=== PATIENT | male | born 1955 | race Caucasian/White ===

== ENCOUNTER 2021-07-06 22:43 | Emergency (ER) | payer MEDICARE, OTHER ==
[~2021-07-06] VITALS: Ht 170.2 cm; Wt 106.1 kg
[2021-07-06] MEDS ORDERED: IV NS 0.9% 500 ML BAG IV ONE (23:30)
[2021-07-06 23:44] LABS: BASOPHILS # (AUTO) 0.1 K/uL (0.0-0.2); BASOPHILS % (AUTO) 0.7 % (0.0-2.0); EOSINOPHILS % (AUTO) 1.9 % (0.0-6.0); HEMATOCRIT 39 % (39-51); LYMPHOCYTES # (AUTO) 2.1 K/uL (0.8-4.8); LYMPHOCYTES % (AUTO) 16.9 % (20.0-44.0); MEAN CORPUSCULAR HGB CONC 31 g/dl (31.0-36.0); MEAN CORPUSCULAR VOLUME 77 fL (80-96); MONOCYTES # (AUTO) 1.2 K/uL (0.1-1.30); MONOCYTES % (AUTO) 9.7 % (2.0-12.0); NEUTROPHILS # (AUTO) 8.9 K/uL (1.8-8.9); NEUTROPHILS % (AUTO) 70.8 % (43.0-81.0); PLATELET COUNT (AUTO) 261 K/uL (150-450); RED BLOOD CELL COUNT(AUTO) 5.03 MIL/uL (4.5-6.0); WHITE BLOOD COUNT (AUTO) 12.6 K/uL (4.3-11.0)
--- NOTE | 2021-07-06 23:52 | NUR ---
Patient out to CT
[2021-07-06 23:59] LABS: CALCIUM, SERUM 8.3 mg/dL (8.5-10.1); CREATININE 1.4 mg/dL (0.6-1.3); POTASSIUM 4.4 mmol/L (3.5-5.1)
[2021-07-07 00:05] LABS: ALBUMIN 3.5 g/dL (3.4-5.0); BILIRUBIN,DIRECT 0.1 mg/dL (0.0-0.2); BILIRUBIN,TOTAL 0.2 mg/dL (0.2-1.0)
--- NOTE | 2021-07-07 00:37 | NUR ---
followed up with lab regarding lab result, spoke with Fawad
[2021-07-07 00:48] LABS: BILIRUBIN,URINE NEGATIVE (NEGATIVE); COLOR,URINE YELLOW (YELLOW); LEUKOCYTE ESTERASE ,URINE NEGATIVE (NEGATIVE); NITRITE, URINE NEGATIVE (NEGATIVE); PH,URINE 7.5 (5.0-8.0); PROTEIN,URINE TRACE mg/dl (NEGATIVE); UGLUCOSE NEGATIVE (NEGATIVE); UROBILINOGEN,URINE 0.2 EU/dL (0.2)
--- NOTE | 2021-07-07 01:25 | NUR ---
ATTEMPTED TO DISCHARGE PT TO [facility]. [facility] REFUSED TO ACCEPT PATIENT AND BECAME VERBALLY AGRESSIVE TOWARDS STAFF STATING PATIENT REQUIRED BEING ADMITTED TO HAVE MEDICATION DOSES ADJUSTED. ATTEMPTED EDUCATING [facility] MULTIPLE TIMES WITH CHARGE NURSE AND INFORMED THEM NO EMERGENCIES WERE PRESENT AND THAT THEY NEEDED TO FOLLOW UP WITH A PCP FOR MEDICATION ADJUSTMENTS, AND [facility] CONTINUED TO REFUSE. NOTIFIED.
--- NOTE | 2021-07-07 02:10 | NUR ---
RODOLFO KEBEDE TALKING TO DR. MONROE WHO IS THE PT'S PCP.
[2021-07-07 02:17] LABS: BACTERIA,URINE None seen /HPF (None Seen)
[2021-07-07 02:18] LABS: SQUAMOUS EPITHELIAL CELL,UR Few /HPF (None Seen); WBC,URINE 0-2 /HPF (0-3)
--- NOTE | 2021-07-07 03:15 | NUR ---
PT IS UNABLE TO GO HOME AT [facility] TIME D/T THERE IS NOBODY THAT WILL BE WITH THE PATIENT AT HOME. PT WILL BE DISCHARGED IN THE MORNING AND CHAUNCEY, THE ROTARY CUTTER OPERATOR TAKING CARE OF THE PATIENT'S CASE WILL BE ARRANGING A CAREGIVER TO BE AT THE PATIENT'S HOME IN THE MORNING WHEN HE GETS HOME.
--- NOTE | 2021-07-07 03:28 | NUR ---
CHAUNCEY - MATE FISHING VESSEL FROM [facility] TAKING CARE OF PT'S CASE. - [phone]
--- NOTE | 2021-07-07 03:42 | NUR ---
[facility] ETA 1000
--- NOTE | 2021-07-07 03:43 | NUR ---
ABIODUN - VISITING [facility] [phone]
--- NOTE | 2021-07-07 06:30 | NUR ---
PATIENT STABLE MEDICALLY CLEARED TO BE DISCHARGED AT 1000.
--- NOTE | 2021-07-07 06:59 | NUR ---
CALLED FOR TRAY.
--- NOTE | 2021-07-07 10:09 | NUR ---
Patient discharged to home via ambulance in stable condition. Written and verbal after care instructions given. Patient verbalizes understanding of instruction.
[2021-07-07 10:12] VITALS: BP 142/81
== END 2021-07-07 10:12 | disposition home or self-care (01) ==
LOC: ER 22:49
DX: R53.1 Weakness (principal); G20 Parkinson's disease; G43.909 Migraine, unspecified, not intractable, without status migrainosus; F31.9 Bipolar disorder, unspecified; Z95.0 Presence of cardiac pacemaker
CPT/HCPCS: 36415; 70450; 71045; 80048; 80076; 81001; 82962; 84484; 85025; 85730; 93005; 99285; J7040